=== PATIENT | female | born 1940 | race Caucasian/White ===

== ENCOUNTER → 2018-05-20 13:21 | Outpatient (CLI) | payer MEDICARE, OTHER, SELFPAY | PROVIDERS: Family Provider Family Medicine; PCP Family Medicine; Visit Provider Psychiatry & Neurology Neurology | DX: I69.30 Unspecified sequelae of cerebral infarction (principal); Z53.9 Procedure and treatment not carried out, unspecified reason ==

== ENCOUNTER → 2018-05-28 08:36 | Outpatient (CLI) | payer MEDICARE, OTHER, SELFPAY ==
--- NOTE | 2018-05-28 | DI.MRI.S_ITS ---
PROCEDURE: MR ANKLE LT WO CON INDICATIONS: LEFT ANKLE PAIN TECHNIQUE: Noncontrast sagittal T1 spin echo and T2 fast spin echo with fat saturation, axial proton density fast spin echo and T2 fast spin echo with fat saturation, coronal T1 spin echo and T2 fast spin echo with fat saturation through the ankle/hindfoot. COMPARISON: None. FINDINGS: Image quality: Excellent. Bones and joints: No bone marrow contusions or fractures. No hindfoot coalitions. Subchondral sub-5 mm focus of marrow edema is probably reactive to joint degeneration, rather than early osteochondral defect. No pathologic joint effusions. Medial structures: The flexor digitorum longus, and flexor hallucis longus tendons are intact. 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 There is posterior tibialis tenosynovitis, mild. The posterior tibial neurovascular bundle appears normal within the tarsal tunnel, without extrinsic mass effect. The deep layer (anterior and posterior tibiotalar ligaments) and superficial layer (tibionavicular, tibiospring, and tibiocalcaneal ligaments) of the deltoid ligament appear normal. The spring ligament components (superomedial calcaneonavicular, medioplantar oblique calcaneonavicular, and inferoplantar longitudinal ligaments) are intact. Lateral structures: The anterior talofibular appears intact although there is prominent adjacent edema and fluid and possible mild intrasubstance signal change raising possibility of age indeterminate low-grade sprain. The calcaneofibular, and posterior talofibular ligaments appear intact. More superiorly, the anterior and posterior tibiofibular ligaments appear intact, as is the intermalleolar ligament. The tibiofibular syndesmosis is normal in width at 2 mm or less. The peroneus longus and brevis tendons demonstrate normal location and morphology. Adjacent bony peroneal tubercle and retrotrochlear prominence are normal in size. The sinus tarsi demonstrates normal fatty signal, without edema, fibrosis, or cyst formation. Visualized sinus tarsi components (cervical ligament, interosseous talocalcaneal ligament, roots of the inferior extensor retinaculum) appear normal. The calcaneonavicular and calcaneocuboid components of the bifurcate ligament appear intact. The dorsal calcaneocuboid ligament appears intact. Anterior structures: The tibialis anterior, extensor hallucis longus, and extensor digitorum longus tendons appear intact. There is minimal extensor digitorum longus tenosynovitis. The dorsal talonavicular ligament appears intact. Posterior and plantar structures: Achilles tendon is thickened with intrasubstance signal changes in keeping with tendinopathy, for example image 11-12 on series 6. Is also insertional intrasubstance signal change. Chronic appearing medial band plantar fasciitis with relative paucity of T2 hyperintensity. IMPRESSION: Insertional posterior tibialis tendinopathy, and mild tenosynovitis. Ununited accessory navicular Distal Achilles and insertional tendinopathy and thickening. Chronic appearing medial band plantar fasciitis. Talonavicular joint degeneration. Tibiotalar moderate degeneration with subchondral marrow signal changes. Possible low-grade sprain of the anterior talofibular ligament. Minimal extensor digitorum longus tenosynovitis. Dictated by: José Miguel Kwan M.D. on 05/28/2018 at 10:24 Approved by: José Miguel Kwan M.D. on 05/28/2018 at 10:39
== END ==
PROVIDERS: Family Provider Family Medicine; PCP Family Medicine; Visit Provider Family Medicine
DX: M25.572 Pain in left ankle and joints of left foot (principal); M65.872 Other synovitis and tenosynovitis, left ankle and foot; M72.2 Plantar fascial fibromatosis; M19.072 Primary osteoarthritis, left ankle and foot
CPT/HCPCS: 73721

== ENCOUNTER → 2018-08-16 07:48 | Outpatient (CLI) | payer MEDICARE, OTHER, SELFPAY ==
[2018-08-16 09:06] LABS: Alanine Aminotransferase 38 IU/L (9-52); Albumin 4.5 g/dL (3.5-5.0); Albumin Globulin Ratio 1.3 (1.0-2.8); Alkaline Phosphatase 104 U/L (38-126); Aspartate Aminotransferase 25 IU/L (14-36); BUN Creatinine Ratio 25.6 (6-22); Bilirubin Total 1.2 mg/dL (0.2-1.3); Blood Urea Nitrogen 23 mg/dL (7-17); Calcium 10.1 mg/dL (8.4-10.2); Carbon Dioxide 27 mmol/L (22-32); Chloride 101 mmol/L (98-107); Cholesterol 184 mg/dL (140-199); Estimated Glomerular Filt Rate > 60.0 mL/min (>60); Globulin 3.4 g/dL (1.7-4.1); Glucose 144 mg/dL (80-110); HDL Cholesterol 42 mg/dL (40-60); HEMOLYSIS < 15 (0-50); Hemoglobin A1C% w Est Avg Glu 7.8 % (4.0-6.0); LDL Cholesterol Calculated 90 mg/dL (<100); Magnesium 1.7 mg/dL (1.6-2.3); Potassium 3.5 mmol/L (3.4-5.1); Sodium 140 mmol/L (137-145); Total Protein 7.9 g/dL (6.3-8.2); Triglycerides 259 mg/dL (35-150)
[2018-08-16 09:43] LABS: Free T4, Direct Thyroxine 1.55 ng/dL (0.78-2.19)
[2018-08-16 09:57] LABS: Thyroid Stimulating Hormone 4.27 uIU/mL (0.47-4.68)
[2018-08-16 14:22] LABS: Add Manual Diff / Slide Review NO; Basophils Absolute Auto 100 /uL (0-100); Basophils Percent Auto 1.4 % (0-2); Eosinophils Absolute Auto 500 /uL (0-450); Eosinophils Percent Auto 4.9 % (2-4); Hematocrit 41.9 % (36-46); Hemoglobin 13.8 g/dL (12.0-16.0); Lymphocytes Absolute Auto 1600 /uL (1100-4500); Lymphocytes Percent Auto 15.5 % (25-40); Mean Corpuscular HGB Conc 32.8 % (30-36); Mean Corpuscular Hemoglobin 29.6 PG (26-34); Mean Corpuscular Volume 90.3 fL (80-100); Monocytes Absolute Auto 900 /uL (0-900); Monocytes Percent Auto 9.3 % (3-14); Neutrophils Absolute Auto 6900 /uL (1500-7000); Neutrophils Percent Auto 68.9 % (50-75); Red Blood Cell Count 4.64 X10^6/uL (4.0-5.2)
[2018-08-16 15:09] LABS: Platelet Count 168 X10^3/uL (150-400)
== END ==
PROVIDERS: Family Provider Family Medicine; PCP Family Medicine; Visit Provider Family Medicine
DX: E11.9 Type 2 diabetes mellitus without complications (principal); E78.5 Hyperlipidemia, unspecified; E03.9 Hypothyroidism, unspecified
CPT/HCPCS: 36415; 80053; 80061; 83036; 83735; 84439; 84443; 85025

== ENCOUNTER → 2018-10-14 13:40 | Outpatient (CLI) | payer MEDICARE, OTHER, SELFPAY ==
--- NOTE | 2018-10-14 | DI.ECHO.S_ITS ---
[facility]---------+ [facility] +---------+ : : [address] : : : : [id number] : : : : Phone: [phone]+ Echocardiogram Report + + :Name: GEOVANY MAS Study Date: 10/14/2018 Height: 68 in : :[facility] Location: [facility] Weight: 190 lb : : Gender: Female BSA: 2.0 m2 : :: 1940 Age: 78 yrs BP: 110/60 mmHg: :Reason For Study: Aortic valve stenosis : :Ordering Physician: Marcus : :Evita Lloyd Performed By: Marcella Page : + + Interpretation Summary Left ventricular systolic function is normal with the ejection fraction visually estimated to be 60-65% without focal wall motion abnormalities and appears unchanged compared to the previous study. There is mild concentric left ventricular hypertrophy that is also unchanged compared to the previous study. There has been no significant change since the previous study. The right ventricle is normal in size and function and appears slightly smaller and more dynamic compared to the previous study. The right ventricular systolic pressure is estimated to be at least 34 mmHg based on an estimated right atrial pressure of 3 mm Hg, and is likely significantly lower compared to the previous study. The left atrium is severely dilated and the right atrium is moderately dilated. Both are grossly unchanged compared to the previous study. There is mild to moderate mitral regurgitation and mild pulmonic regurgitation that are unchanged compared to the previous study. There is mild tricuspid regurgitation that appears less prominent compared to the previous study. The aortic valve is moderately calcified with probable moderate to severe aortic stenosis that is progressive compared to the previous study now with a peak aortic velocity of 3.8 m/s compared to 3.2 m/s on the previous study. The aortic valve mean gradient is now 35 mmHg compared to 24 mmHg previously, now with a calculated aortic valve area of 0.70 cm2. There is mild to moderate aortic regurgitation that is unchanged compared to the previous study. The ascending aorta is mildly enlarged and measures slightly larger compared to the previous study. The patient was in atrial fibrillation with heart rates between 56--80 bpm during the exam which is slightly faster compared to the previous study. Procedure: A two-dimensional transthoracic echocardiogram with color flow and Doppler was performed. The study quality was technically adequate. Comparison is made with the echocardiogram of 09/30/2017. The patient was in atrial fibrillation with heart rates between 56--80 bpm during the exam. This is slightly faster compared to the previous study. Left Ventricle: The left ventricle is normal in size. There is mild concentric left ventricular hypertrophy. This is unchanged compared to the previous study. Left ventricular systolic function is normal without focal wall motion abnormalities. The ejection fraction is estimated to be 60-65%. This is unchanged compared to the previous study. Diastolic function could not be accurately assessed due to atrial fibrillation. There has been no significant change since the previous study. Right Ventricle: The right ventricle is normal in size and function. This is slightly smaller and more dynamic compared to the previous study. Atria: The left atrium is severely dilated. The right atrium is moderately dilated. This is unchanged compared to the previous study. There is no Doppler evidence for an interatrial shunt. Mitral Valve: There is mild to moderate mitral annular calcification. The mitral valve leaflets are mildly calcified. There is mild to moderate mitral regurgitation. This is unchanged compared to the previous study. Aortic Valve: The aortic valve is not well visualized. The aortic valve is moderately calcified. Leaflet mobility is moderate to severely reduced. There is moderate to severe aortic stenosis. This is progressive compared to the previous study. The peak aortic velocity is 3.8 m/sec. The peak aortic velocity on the previous exam was 3.2 m/sec. The aortic valve mean gradient is 35.2 mmHg. The calculated aortic valve area is 0.70 cm2. There is mild to moderate aortic regurgitation. This is unchanged compared to the previous study. Tricuspid Valve: The tricuspid valve is normal in structure and function. There is mild tricuspid regurgitation. This is less prominent compared to the previous study. The right ventricular systolic pressure is estimated to be at least 34 mmHg based on an estimated right atrial pressure of 3 mm Hg. This is significantly lower compared to the previous study. Pulmonic Valve: The pulmonic valve is not well visualized. There is mild pulmonic regurgitation. This is unchanged compared to the previous study. Great Vessels: The aortic root is normal size. The ascending aorta is mildly enlarged. This is slightly larger compared to the previous study. The pulmonary artery is not well visualized, but is probably normal size. The IVC is of normal diameter and collapses greater than 50% with a sniff. This suggests a low right atrial pressure of 3 mm Hg. Pericardium/ Pleura There is no pericardial effusion. There is no pleural effusion. MMode/2D Measurements & Calculations LVIDd: 4.2 cm LVOT diam: 2.0 cm LVIDs: 2.9 cm Ao root diam: 3.0 cm FS: 30.2 % asc Aorta Diam: 3.4 cm EPSS: 0.55 cm IVSd: 0.98 cm LVPWd: 1.2 cm LV villalba. diameter/BSA (cm/m^2): 2.1 LV sys. diameter/BSA (cm/m^2): 1.5 LA A2 area: 29.0 cm2 RA long axis: 5.3 cm LA A4 area: 28.3 cm2 RA area: 22.5 cm2 LA length (vol): 6.6 cm RA vol: 81.5 ml LA vol: 105.6 ml RA : 40.7 ml/m2 LA vol index: 52.8 ml/m2 IVC diam: 2.0 cm RVD1 (basal): 3.6 cm RVD2 (mid): 4.1 cm Doppler Measurements & Calculations Ao V2 max: 375.4 cm/sec LVOT Max Carlo: 81.8 cm/sec Ao V2 mean: 282.6 cm/sec LV V1 max P.7 mmHg Ao max P.5 mmHg LV V1 VTI: 20.1 cm Ao mean P.2 mmHg MARTHA(I,D): 0.70 cm2 Ao V2 VTI: 89.6 cm MARTHA(V,D): 0.68 cm2 sev ratio: 0.22 MARTHA indexed to BSA (cm^2/m^2): 0.35 AI P1/2t: 455.3 msec AI dec slope: 262.1 cm/sec2 MV E max carlo: 104.8 cm/sec TR max carlo: 277.3 cm/sec MV P1/2t: 49.5 msec TR max P.8 mmHg PA V2 max: 81.0 cm/sec PA V2 mean: 53.2 cm/sec PA mean P.2 mmHg PA Accel Time: 0.07 sec MV P1/2t max carlo: 104.8 cm/sec SV(LVOT): 62.7 ml MVA(P1/2t): 4.4 cm2 Reading Physician:JUNIOR
== END ==
PROVIDERS: Family Provider Family Medicine; PCP Family Medicine; Visit Provider Hospitalist
DX: I08.3 Combined rheumatic disorders of mitral, aortic and tricuspid valves (principal); I77.89 Other specified disorders of arteries and arterioles
CPT/HCPCS: 93306

== ENCOUNTER → 2020-06-15 16:08 | Outpatient (CLI) | payer MEDICARE, OTHER, SELFPAY ==
--- NOTE | 2020-06-15 16:11 | DI.ECHO.S_ITS ---
Ordering: ASHLEY DELANEY Referring: ASHLEY DELANEY Clinician: Eli Melendez Reason For Study: XENOGENIC HEART VALV History: Summary Statements Afib with controlled rate ranging from 52 to 69 bpm. Normal LV size; mild concentric LVH; normal wall motion and LV systolic function. EF is 60-65% Moderate LA enlargement; otherwise normal chamber sizes. Aortic valve is replaced by history with Rosangela S3 23 mm valve 04/2019. It is well seated and functioning normally. Mild MAC. Compared to prior study 10/14/2018, severe aortic stenosis is no longer present. TAVR is new. Afib is unchanged. Procedure: A two-dimensional transthoracic echocardiogram with color flow and Doppler was performed. The study quality was technically adequate. Comparison is made with the echocardiogram of 10/14/2018. The patient was in atrial fibrillation with heart rates between 52-69 bpm during the exam. Left Ventricle: The left ventricle is normal in size. There is mild concentric left ventricular hypertrophy. The ejection fraction is estimated to be 60-65%. Diastolic function could not be accurately assessed due to atrial fibrillation. Right Ventricle: The right ventricle is normal in size and function. Atria: The left atrium is moderately dilated. Right atrial size is normal. There is no Doppler evidence for an interatrial shunt. Mitral Valve: The mitral valve leaflets are mildly calcified. There is mild to moderate mitral annular calcification. There is mild to moderate mitral regurgitation. Aortic Valve: There is a prosthetic aortic valve. The peak aortic velocity is 2.17 m/sec. Tricuspid Valve: The tricuspid valve is normal in structure and function. There is mild tricuspid regurgitation. The right ventricular systolic pressure is estimated to be at least 41 mmHg based on an estimated right atrial pressure of 3 mm Hg. Pulmonic Valve: The pulmonic valve leaflets are thin and pliable; valve motion is normal. There is mild to moderate pulmonic regurgitation. Great Vessels: The aortic root is normal size. The dimensions of the ascending aorta are normal. The IVC is of normal diameter and collapses greater than 50% with a sniff. This suggests a low right atrial pressure of 3 mm Hg. Pericardium/ Pleura: There is no pericardial effusion. There is no pleural effusion. 2D and M-Mode Measurements and Calculations LVIDd: 5.0 cm LVOT diam: 1.89 cm LVIDs: 3.1 cm asc Aorta Diam: 3.7 cm IVSd: 0.97 cm Ao Arch Diam (Prox Trans): 2.29 cm LVPWd: 1.17 cm LV villalba. diameter/BSA (cm/m^2): 2.46 LV sys. diameter/BSA (cm/m^2): 1.52 EPSS: 0.80 cm RVD1 (basal): 3.6 cm IVC diam: 2.02 cm TAPSE: 1.85 cm LA A4 area: 25.8 cm?? RA area: 20.2 cm?? LA A2 area: 24.6 cm?? RA long axis: 5.8 cm LA length (vol): 6.0 cm RA vol: 59.8 ml LA vol: 89.7 ml RA : 29.7 ml/m?? LA vol index: 44.5 ml/m?? Doppler Measurements and Calculations Ao V2 max: 216.7 cm/sec LVOT Max Carlo: 71.7 cm/sec Ao V2 mean: 153.6 cm/sec LV V1 max P.06 mmHg Ao V2 VTI: 54.4 cm LV V1 VTI: 19.4 cm Ao max P.8 mmHg Ao mean P.6 mmHg MARTHA(I,D): 1.00 cm?? MARTHA(V,D): 0.93 cm?? MARTHA indexed to BSA (cm^2/m^2): 0.50 sev ratio: 0.36 MV E max carlo: 122.9 cm/sec MV dec time: 0.20 sec MV A max carlo: 42.3 cm/sec MV E/A: 2.9 Med Peak E' Carlo: 4.2 cm/sec Lat Peak E' Carlo: 5.2 cm/sec E/e' average: 26.5 TR max carlo: 308.2 cm/sec PA V2 max: 64.9 cm/sec TR max P.0 mmHg PA mean P.75 mmHg Electronically signed by: Arely Mendenhall M.D. 06/17/2020, 12: 21 AM
== END ==
PROVIDERS: Family Provider Family Medicine; PCP Family Medicine; Referring Provider Internal Medicine Cardiovascular Disease; Visit Provider Internal Medicine Cardiovascular Disease
DX: I08.1 Rheumatic disorders of both mitral and tricuspid valves (principal); Z95.3 Presence of xenogenic heart valve
CPT/HCPCS: 93306